=== PATIENT | male | born 1955 | race African-American/Black ===

== ENCOUNTER 2022-11-18 21:03 | Inpatient (IN) | payer OTHER ==
[2022-11-18] MEDS ORDERED: Dexamethasone 10 MG/ML VIAL ONE ×2 (21:08→21:38)
[2022-11-18] MEDS ORDERED: Magnesium 2 GM/50 ML BAG (IN WATER) ONE (21:08)
[2022-11-18] MEDS ORDERED: Nitroglycerin 50 MG/250 ML BOT 250 ML ONE (21:11)
[2022-11-18] MEDS ORDERED: Ketamine 50 MG/ML (10ML VIAL) ONE (21:14)
[2022-11-18] MEDS ORDERED: Furosemide 40 MG/4 ML VIAL ONE (21:17)
[2022-11-18 21:23] LABS: Actual Bicarbonate (HCO3a) 22.5 mEq/L (22-28); Analyzer IN Cardio ER; Base Excess (BEa) -6.6 mEq/L (-2.0 to +3.0); Calcium, Ionized (arterial) 1.21 mmol/L (1.12-1.30); Carboxyhemoglobin (COHb) 1.3 gm% (0.0-3.0); Hematocrit-ABG 39 % (42.0-52.0); Hemoglobin (Hb) 13.3 g/dL (14.0-18.0); O2 Tension (PaO2), arterial 391.2 mmHg (> 80.0); Potassium - ABG Lab 4.58 mmol/L (3.70-5.30)
[2022-11-18 21:25] LABS: #Eosinphils 0.1 thou/uL (0.0-0.7); #Monocytes 1.2 thou/uL (0.11-0.59); #Neutrophils 7.1 thou/uL (1.40-6.50); %Basophils 0.3 % (0.0-1.0); %Eosinophils 0.7 % (0.0-10.0); %Lymphocytes 18.2 % (21.0-51.0); %Monocytes 11.6 % (0.0-10.0); %Neutrophils 68.1 % (42.0-75.0); Hemoglobin 13.2 g/dL (14.0-18.0); Mean Corpuscular HGB CONC 30.2 g/dL (32.0-36.0); Mean Corpuscular Volume 105.8 fl (78.0-98.0); Mean Platelet Volume 10.1 fL (7.4-10.4); Platelet Count 256 10x3/uL (130-400); RBC Distribution Width 12.6 % (11.5-14.5); Red Blood Cell (RBC) Count 4.13 mill/uL (4.70-6.10); White Blood Cell (WBC) Count 10.4 10x3/uL (4.8-10.8)
[2022-11-18 21:27] LABS: CO2 Tension 61.8 mmHg (35.0-45.0)
[2022-11-18 21:28] LABS: Puncture Site LRA
[2022-11-18 22:06] LABS: Analyzer IN Cardio ER; Base Excess (BEa) -1.7 mEq/L (-2.0 to +3.0); CO2 Tension 50.8 mmHg (35.0-45.0); Calcium, Ionized (arterial) 1.16 mmol/L (1.12-1.30); Carboxyhemoglobin (COHb) 1.3 gm% (0.0-3.0); Hematocrit-ABG 37 % (42.0-52.0); Hemoglobin (Hb) 12.7 g/dL (14.0-18.0); O2 Tension (PaO2), arterial 93.6 mmHg (> 80.0); Potassium - ABG Lab 4.23 mmol/L (3.70-5.30)
[2022-11-18] MEDS ORDERED: Albuterol 2.5 MG/0.5 ML NEB ONE (22:09)
[2022-11-18] MEDS: Ipratropium/Albuterol 3 ML NEB NEB SCH (22:15)
[2022-11-18] MEDS ORDERED: Cefepime 2 GM VIAL ONE (22:15)
[2022-11-18] MEDS ORDERED: Vancomycin 1 GM/200 ML (FROZEN) BAG ONE (22:15)
[2022-11-18 22:30] LABS: Calcium 8.4 mg/dL (7.8-10.44); Chloride 108 mmol/L (98-107); Potassium 5.2 mmol/L (3.5-5.1); Sodium 138 mmol/L (136-145)
[2022-11-18 22:31] LABS: Glucose 140 mg/dL (80-115)
[2022-11-18 22:33] LABS: Anion Gap 14 mmol/L (10-20); Carbon Dioxide 21 mmol/L (23-31)
[2022-11-18 22:34] LABS: Calc. Creatinine Clearance 0 mL/min (70-130); Estimated GFR 33
[2022-11-18 22:35] LABS: BUN (Urea Nitrogen) 25 mg/dL (8.4-25.7)
[2022-11-18 22:36] LABS: Magnesium 2.2 mg/dL (1.6-2.6)
[2022-11-18] MEDS ORDERED: Acetaminophen 650 MG Suppository PR PRN (22:45)
[2022-11-18] MEDS ORDERED: Acetaminophen 325 MG TAB PO PRN (22:45)
[2022-11-18] MEDS ORDERED: Ondansetron ODT 4 MG TAB PO PRN (22:45)
[2022-11-18] MEDS ORDERED: Ondansetron PF 4 MG/2 ML Vial IVP PRN (22:45)
[2022-11-18 22:46] LABS: Puncture Site LRA
[2022-11-18] MEDS ORDERED: Ipratropium/Albuterol 3 ML NEB NEB PRN (22:50)
[2022-11-19 01:47] LABS: CKMB 4.8 ng/mL (0-6.6)
[2022-11-19 02:14] LABS: Lactic Acid 1.7 mmol/L (0.5-2.2)
[2022-11-19 02:17] LABS: Anion Gap 14 mmol/L (10-20); BUN (Urea Nitrogen) 26 mg/dL (8.4-25.7); Calc. Creatinine Clearance 0 mL/min (70-130); Calcium 8.6 mg/dL (7.8-10.44); Carbon Dioxide 22 mmol/L (23-31); Chloride 103 mmol/L (98-107); Estimated GFR 37; Glucose 137 mg/dL (80-115); Potassium 4.5 mmol/L (3.5-5.1); Sodium 134 mmol/L (136-145)
[2022-11-19] MEDS: Ipratropium/Albuterol 3 ML NEB NEB SCH ×6 (02:42→22:37)
[2022-11-19] MEDS ORDERED: Ipratropium/Albuterol 3 ML NEB NEB PRN (04:13)
[2022-11-19 05:18] LABS: Actual Bicarbonate (HCO3v) 20.3 mEq/L (22-28); Base Excess -1.7 mEq/L (-2.0 to +3.0); Calcium, Ionized (venous) 1.01 mmol/L (1.16-1.32); Chloride (VBG) 105 mmol/L (98-106); Hematocrit-VBG 38 % (42.0-52.0); Potassium (VBG) 5.05 mmol/L (3.70-5.30); Sodium 121.3 mmol/L (133-146); pH (venous) 7.493 (7.32-7.43)
[2022-11-19 05:26] VITALS: BMI 19.8
[2022-11-19 06:16] LABS: #Monocytes 0.1 thou/uL (0.11-0.59); #Neutrophils 7.9 thou/uL (1.40-6.50); %Basophils 0.1 % (0.0-1.0); %Monocytes 1.2 % (0.0-10.0); Hemoglobin 11.7 g/dL (14.0-18.0); Mean Corpuscular HGB CONC 31.1 g/dL (32.0-36.0); Mean Corpuscular Hemoglobin 32.3 pg (27.0-31.0); Mean Corpuscular Volume 103.9 fl (78.0-98.0); Mean Platelet Volume 10.4 fL (7.4-10.4); Platelet Count 235 10x3/uL (130-400); RBC Distribution Width 12.5 % (11.5-14.5); Red Blood Cell (RBC) Count 3.62 mill/uL (4.70-6.10); White Blood Cell (WBC) Count 8.6 10x3/uL (4.8-10.8)
[2022-11-19 06:28] LABS: Anion Gap 14 mmol/L (10-20); BUN (Urea Nitrogen) 27 mg/dL (8.4-25.7); Calc. Creatinine Clearance 29 mL/min (70-130); Calcium 8.8 mg/dL (7.8-10.44); Carbon Dioxide 24 mmol/L (23-31); Chloride 102 mmol/L (98-107); Estimated GFR 35; Glucose 117 mg/dL (80-115); Potassium 4.4 mmol/L (3.5-5.1); Sodium 136 mmol/L (136-145)
[2022-11-19] MEDS: predniSONE 20 MG TAB PO SCH (08:53)
[2022-11-19] MEDS: Famotidine/PF 20 mg/2ml Vial SLOW IVP SCH ×2 (08:56→22:04)
[2022-11-19] MEDS: Doxycycline 100 MG in Sodium Chloride 0.9% 100 ML IVPB SCH ×2 (08:56→22:03)
[2022-11-19] MEDS: Furosemide 40 MG/4 ML VIAL SLOW IVP SCH (08:56)
[2022-11-19] MEDS ORDERED: methylPREDNISolone Sod Succ 40 MG VIAL IVP SCH (09:00)
[2022-11-19] MEDS ORDERED: Iopamidol 370 76% 100 ML VIAL ONE (09:50)
[2022-11-20] MEDS: Ipratropium/Albuterol 3 ML NEB NEB SCH ×6 (02:21→22:20)
[2022-11-20 05:32] LABS: Magnesium 1.9 mg/dL (1.6-2.6)
[2022-11-20] MEDS: Doxycycline 100 MG in Sodium Chloride 0.9% 100 ML IVPB SCH (08:41)
[2022-11-20] MEDS: predniSONE 20 MG TAB PO SCH (08:41)
[2022-11-20] MEDS: Famotidine/PF 20 mg/2ml Vial SLOW IVP SCH (08:42)
[2022-11-20] MEDS: Furosemide 40 MG/4 ML VIAL SLOW IVP SCH (08:42)
[2022-11-20] MEDS: Doxycycline 100 MG CAP PO SCH ×2 (10:07→20:05)
[2022-11-20] MEDS: Famotidine 20 MG TAB PO SCH (10:08)
[2022-11-20] MEDS ORDERED: ALPRAZolam 0.25 MG TAB PO PRN (11:10)
[2022-11-20] MEDS ORDERED: Carvedilol 3.125 MG TAB PO SCH ×2 (17:00→19:15)
[2022-11-20] MEDS ORDERED: Rivaroxaban 10 MG TAB PO SCH (18:00)
[2022-11-21] MEDS: Ipratropium/Albuterol 3 ML NEB NEB SCH ×4 (02:19→14:30)
[2022-11-21] MEDS ORDERED: Furosemide 40 MG TAB PO SCH (07:30)
[2022-11-21] MEDS ORDERED: Carvedilol 3.125 MG TAB PO SCH (08:00)
[2022-11-21] MEDS ORDERED: Spironolactone 25 MG TAB PO SCH (08:00)
[2022-11-21] MEDS: predniSONE 20 MG TAB PO SCH (08:31)
[2022-11-21] MEDS: Doxycycline 100 MG CAP PO SCH (08:31)
[2022-11-21] MEDS: Famotidine 20 MG TAB PO SCH (08:32)
[2022-11-21 12:08] VITALS: BP 130/88; TEMP 98.2
[2022-11-21] MEDS ORDERED: Rivaroxaban 15 MG TAB PO SCH (18:00)
== END 2022-11-21 15:10 | disposition home or self-care (01) | DRG 291 ==
LOC: ERS 21:03 → ERHOLD 22:38 → IMCU/EMU 11-19 02:47 → OBSVTOIN 11-19 03:42 → 2SW 11-19 20:10
PROVIDERS: ADMIT Student in an Organized Health Care Education/Training Program; ATTEND Family Medicine
PROC: 4A133R1 Monitoring of Arterial Saturation, Peripheral, Percutaneous Approach (ICD-10-PCS; principal; 2022-11-18)
PROC: 5A09357 Assistance with Respiratory Ventilation, Less than 24 Consecutive Hours, Continuous Positive Airway Pressure (ICD-10-PCS; 2022-11-19)
DX: I50.43 Acute on chronic combined systolic (congestive) and diastolic (congestive) heart failure (principal); G93.41 Metabolic encephalopathy; J96.21 Acute and chronic respiratory failure with hypoxia; J96.22 Acute and chronic respiratory failure with hypercapnia; J44.1 Chronic obstructive pulmonary disease with (acute) exacerbation; E87.20 Acidosis, unspecified; I24.8 Other forms of acute ischemic heart disease; I47.20 Ventricular tachycardia, unspecified; Z51.5 Encounter for palliative care; N18.30 Chronic kidney disease, stage 3 unspecified; I48.0 Paroxysmal atrial fibrillation; R79.1 Abnormal coagulation profile; R91.8 Other nonspecific abnormal finding of lung field; I34.0 Nonrheumatic mitral (valve) insufficiency; Z99.81 Dependence on supplemental oxygen; Z79.899 Other long term (current) drug therapy; Z98.890 Other specified postprocedural states; Z95.818 Presence of other cardiac implants and grafts; Z87.891 Personal history of nicotine dependence; Z91.198 Patient's noncompliance with other medical treatment and regimen for other reason
CPT/HCPCS: 36415; 36556; 36600; 71045; 71275; 80048; 82553; 82805; 83605; 83735; 83880; 84484; 85025; 85379; 87040; 93005; 94640; 94660; 96365; 96367; 96368; 96375; 99292; G0378; J0692; J1100; J1650; J1940; J3370-JW; J3475; J3490; J7512; J7611; J7620; Q9967; S0028

== ENCOUNTER 2022-12-14 12:10 | Inpatient (IN) | payer OTHER ==
[2022-12-14] MEDS ORDERED: methylPREDNISolone Sod Succ/PF 125 MG/2 ML VIAL ONE (12:33)
[2022-12-14] MEDS ORDERED: Azithromycin 500 MG VIAL ONE (12:33)
[2022-12-14] MEDS ORDERED: Cefepime 2 GM VIAL ONE (12:33)
[2022-12-14 12:42] LABS: Actual Bicarbonate (HCO3v) 18.3 mEq/L (22-28); Analyzer IN Cardio ER; Calcium, Ionized (venous) 0.97 mmol/L (1.16-1.32); Chloride (VBG) 103 mmol/L (98-106); Hematocrit-VBG 44 % (42.0-52.0); Hemoglobin (Hb) 15.1 g/dL (12.6-17.4); Sodium 131.8 mmol/L (133-146); pH (venous) 7.492 (7.32-7.43)
[2022-12-14 13:04] LABS: #Eosinphils 0.1 thou/uL (0.0-0.7); #Monocytes 0.5 thou/uL (0.11-0.59); #Neutrophils 6.2 thou/uL (1.40-6.50); %Basophils 0.4 % (0.0-1.0); %Eosinophils 0.8 % (0.0-10.0); %Lymphocytes 16.5 % (21.0-51.0); %Monocytes 6.4 % (0.0-10.0); %Neutrophils 75.1 % (42.0-75.0); Hematocrit 45.3 % (42.0-52.0); Hemoglobin 14.3 g/dL (14.0-18.0); Mean Corpuscular HGB CONC 31.6 g/dL (32.0-36.0); Mean Corpuscular Hemoglobin 31.4 pg (27.0-31.0); Mean Corpuscular Volume 99.3 fl (78.0-98.0); Mean Platelet Volume 10.1 fL (7.4-10.4); Platelet Count 258 10x3/uL (130-400); Red Blood Cell (RBC) Count 4.56 mill/uL (4.70-6.10); White Blood Cell (WBC) Count 8.3 10x3/uL (4.8-10.8)
[2022-12-14 13:09] LABS: SARS-CoV-2 NAA Rapid Test Not Detected (NotDetected)
[2022-12-14 13:18] LABS: ALT (SGPT) 12 U/L (8-55); AST (SGOT) 22 U/L (5-34); Albumin 3.6 g/dL (3.4-4.8); Alkaline Phosphatase 78 U/L (40-110); Anion Gap 16 mmol/L (10-20); BUN (Urea Nitrogen) 34 mg/dL (8.4-25.7); Bilirubin, Total 0.8 mg/dL (0.2-1.2); Calc. Creatinine Clearance 0 mL/min (70-130); Calcium 9.2 mg/dL (7.8-10.44); Carbon Dioxide 21 mmol/L (23-31); Chloride 103 mmol/L (98-107); Estimated GFR 40; Globulin 3.4 g/dL (2.4-3.5); Glucose 104 mg/dL (80-115); Lipase 28 U/L (8-78); Potassium 4.9 mmol/L (3.5-5.1); Sodium 135 mmol/L (136-145)
[2022-12-14 13:20] LABS: Troponin I 0.066 ng/mL (< 0.028)
[2022-12-14 13:48] LABS: Bacteria/HPF None Seen HPF (None Seen); Bilirubin Negative (Negative); Blood, Urine Negative (Negative); CAUTI Indications for Culture Dysuria,urgency,freq; Clarity Clear (Clear); Glucose, Urine (Dipstick) Normal (Negative); Ketone, Urine Negative (Negative); Leukocyte Negative Leu/uL (Negative); Nitrite Negative (Negative); Protein, Urine (Dipstick) 100 mg/dL (Neg-Trace); RBC/HPF 0-3 HPF (0-3); Specific Gravity, Urine 1.022 (1.002-1.036); Squamous Epithelial 0-3 HPF (0-3); WBC/HPF 0-3 HPF (0-3); pH, Urine 5.5 (5.0-9.0)
[2022-12-14 13:49] LABS: Urine Culture Reflex No No
[2022-12-14 13:54] LABS: Amphetamine Not Detected (NotDetected); Barbiturates Screen Not Detected (NotDetected); Benzodiazepine Screen Not Detected (NotDetected); Cocaine Metabolite Screen Detected (NotDetected); Methadone Not Detected (NotDetected); Methamphetamine Not Detected (NotDetected); Opiate Screen Not Detected (NotDetected); Oxycodone Screen Not Detected (NotDetected); Phencyclidine (PCP) Not Detected (NotDetected); THC/Cannabinoid Screen Not Detected (NotDetected); Tricyclic Screen Not Detected (NotDetected)
[2022-12-14] MEDS ORDERED: Acetaminophen 325 MG TAB PO PRN (15:25)
[2022-12-14] MEDS ORDERED: Ondansetron PF 4 MG/2 ML Vial IVP PRN (15:25)
[2022-12-14 17:04] LABS: Lactic Acid 3.8 mmol/L (0.5-2.2)
[2022-12-14] MEDS: Ipratropium/Albuterol 3 ML NEB NEB SCH ×2 (18:25→23:06)
[2022-12-14] MEDS: Budesonide 0.5 MG/2 ML NEB NEB SCH (18:27)
[2022-12-14 19:49] LABS: Troponin I 0.044 ng/mL (< 0.028)
[2022-12-14] MEDS ORDERED: Amiodarone 450 MG in Dextrose 5% in Water 250 ML IVPB SCH (20:30)
[2022-12-14] MEDS ORDERED: Metoprolol Tartrate 5 MG/5 ML VIAL ONE (20:44)
[2022-12-14] MEDS ORDERED: Metoprolol Tartrate 5 MG/5 ML VIAL IVP SCH (20:45)
[2022-12-14] MEDS ORDERED: Electrolyte Replacement Protocol 1 EACH FS PRN (21:30)
[2022-12-14 21:46] LABS: Lactic Acid 3.8 mmol/L (0.5-2.2)
[2022-12-14 22:07] LABS: Troponin I 0.035 ng/mL (< 0.028)
[2022-12-15] MEDS ORDERED: dilTIAZem 25 MG/5 ML VIAL SLOW IVP SCH (02:00)
[2022-12-15 03:50] LABS: #Monocytes 0.3 thou/uL (0.11-0.59); #Neutrophils 11.2 thou/uL (1.40-6.50); %Basophils 0.1 % (0.0-1.0); %Lymphocytes 6.7 % (21.0-51.0); %Monocytes 2.6 % (0.0-10.0); Hematocrit 41.4 % (42.0-52.0); Hemoglobin 13.2 g/dL (14.0-18.0); Mean Corpuscular HGB CONC 31.9 g/dL (32.0-36.0); Mean Corpuscular Hemoglobin 31.6 pg (27.0-31.0); Mean Platelet Volume 9.9 fL (7.4-10.4); Platelet Count 233 10x3/uL (130-400); RBC Distribution Width 12.8 % (11.5-14.5); Red Blood Cell (RBC) Count 4.18 mill/uL (4.70-6.10); White Blood Cell (WBC) Count 12.5 10x3/uL (4.8-10.8)
[2022-12-15 04:14] LABS: Anion Gap 15 mmol/L (10-20); BUN (Urea Nitrogen) 52 mg/dL (8.4-25.7); Calc. Creatinine Clearance 28 mL/min (70-130); Calcium 9.2 mg/dL (7.8-10.44); Carbon Dioxide 18 mmol/L (23-31); Chloride 104 mmol/L (98-107); Estimated GFR 34; Glucose 148 mg/dL (80-115); Potassium 4.8 mmol/L (3.5-5.1); Sodium 132 mmol/L (136-145)
[2022-12-15] MEDS: Ipratropium/Albuterol 3 ML NEB NEB SCH ×4 (07:25→23:49)
[2022-12-15] MEDS: Budesonide 0.5 MG/2 ML NEB NEB SCH ×2 (07:25→18:12)
[2022-12-15] MEDS ORDERED: dilTIAZem 30 MG TAB PO SCH (08:30)
[2022-12-15] MEDS: Aspirin 81 mg Enteric Coated Tablet PO SCH (08:50)
[2022-12-15] MEDS: Famotidine/PF 20 mg/2ml Vial SLOW IVP SCH (08:50)
[2022-12-15] MEDS ORDERED: Communication Order-Pharmacy FS ONE (09:54)
[2022-12-15] MEDS ORDERED: Amiodarone 150 MG in Dextrose 5% in Water 100 ML IVPB SCH (10:00)
[2022-12-15] MEDS ORDERED: Digoxin 0.5 MG/2 ML AMP SLOW IVP SCH ×2 (10:00→16:00)
[2022-12-15 10:33] LABS: Hematocrit 44.6 % (42.0-52.0); Hemoglobin 13.9 g/dL (14.0-18.0); Platelet Count 248 10x3/uL (130-400)
[2022-12-15] MEDS: dilTIAZem 30 MG TAB PO SCH ×3 (12:42→20:48)
[2022-12-15] MEDS: Amiodarone 450 MG in Dextrose 5% in Water 250 ML IVPB SCH ×2 (12:51→21:45)
[2022-12-15] MEDS: Cefepime 1 GM in Sodium Chloride 0.9% 100 ML IVPB SCH (13:19)
[2022-12-15] MEDS ORDERED: Azithromycin 500 MG in Sodium Chloride 0.9% 250 ML 250 ML IVPB SCH (14:00)
[2022-12-16 04:28] LABS: #Monocytes 1.3 thou/uL (0.11-0.59); #Neutrophils 12.8 thou/uL (1.40-6.50); %Basophils 0.3 % (0.0-1.0); %Eosinophils 0.2 % (0.0-10.0); %Lymphocytes 10.1 % (21.0-51.0); %Neutrophils 80.7 % (42.0-75.0); Hematocrit 44.6 % (42.0-52.0); Hemoglobin 13.7 g/dL (14.0-18.0); Mean Corpuscular HGB CONC 30.7 g/dL (32.0-36.0); Mean Corpuscular Hemoglobin 31.9 pg (27.0-31.0); Mean Platelet Volume 11.8 fL (7.4-10.4); Red Blood Cell (RBC) Count 4.29 mill/uL (4.70-6.10); White Blood Cell (WBC) Count 15.8 10x3/uL (4.8-10.8)
[2022-12-16 04:37] LABS: Platelet Count 133 10x3/uL (130-400)
[2022-12-16 04:55] LABS: Anion Gap 15 mmol/L (10-20); BUN (Urea Nitrogen) 50 mg/dL (8.4-25.7); Calc. Creatinine Clearance 31 mL/min (70-130); Calcium 9.2 mg/dL (7.8-10.44); Carbon Dioxide 18 mmol/L (23-31); Chloride 105 mmol/L (98-107); Estimated GFR 37; Glucose 95 mg/dL (80-115); Potassium 4.7 mmol/L (3.5-5.1); Sodium 133 mmol/L (136-145)
[2022-12-16] MEDS: Famotidine/PF 20 mg/2ml Vial SLOW IVP SCH (08:04)
[2022-12-16] MEDS: dilTIAZem 30 MG TAB PO SCH ×2 (08:04→12:14)
[2022-12-16] MEDS: Aspirin 81 mg Enteric Coated Tablet PO SCH (08:04)
[2022-12-16] MEDS: Ipratropium/Albuterol 3 ML NEB NEB SCH ×3 (08:25→22:17)
[2022-12-16] MEDS: Budesonide 0.5 MG/2 ML NEB NEB SCH ×2 (08:28→18:15)
[2022-12-16] MEDS: Cefepime 1 GM in Sodium Chloride 0.9% 100 ML IVPB SCH (12:15)
[2022-12-16] MEDS ORDERED: Ipratropium/Albuterol 3 ML NEB NEB SCH (13:00)
[2022-12-16] MEDS ORDERED: methylPREDNISolone Sod Succ 40 MG VIAL IVP SCH ×2 (15:00→18:00)
[2022-12-16] MEDS ORDERED: HYDROcodone/Acetaminophen 5/325 mg Tablet PO PRN (16:23)
[2022-12-16] MEDS: methylPREDNISolone Sod Succ 40 MG VIAL IVP SCH ×2 (18:01→22:59)
[2022-12-16] MEDS: Senokot S 8.6-50 MG TAB PO SCH (19:58)
[2022-12-16] MEDS: Amiodarone 200 MG TAB PO SCH (19:58)
[2022-12-17] MEDS: Ipratropium/Albuterol 3 ML NEB NEB SCH ×6 (01:54→22:40)
[2022-12-17 04:03] LABS: #Monocytes 0.1 thou/uL (0.11-0.59); %Basophils 0.1 % (0.0-1.0); %Lymphocytes 4.9 % (21.0-51.0); %Neutrophils 92.9 % (42.0-75.0); Hematocrit 40.4 % (42.0-52.0); Mean Corpuscular HGB CONC 32.2 g/dL (32.0-36.0); Mean Corpuscular Hemoglobin 31.9 pg (27.0-31.0); Mean Platelet Volume 9.6 fL (7.4-10.4); Platelet Count 252 10x3/uL (130-400); RBC Distribution Width 12.7 % (11.5-14.5); Red Blood Cell (RBC) Count 4.08 mill/uL (4.70-6.10); White Blood Cell (WBC) Count 10.8 10x3/uL (4.8-10.8)
[2022-12-17 05:02] LABS: Anion Gap 13 mmol/L (10-20); BUN (Urea Nitrogen) 42 mg/dL (8.4-25.7); Calc. Creatinine Clearance 36 mL/min (70-130); Calcium 9.7 mg/dL (7.8-10.44); Carbon Dioxide 21 mmol/L (23-31); Chloride 104 mmol/L (98-107); Estimated GFR 44; Glucose 148 mg/dL (80-115); Potassium 4.7 mmol/L (3.5-5.1); Sodium 133 mmol/L (136-145)
[2022-12-17] MEDS: methylPREDNISolone Sod Succ 40 MG VIAL IVP SCH ×3 (05:05→17:39)
[2022-12-17] MEDS: Budesonide 0.5 MG/2 ML NEB NEB SCH ×2 (07:35→18:42)
[2022-12-17] MEDS: Famotidine/PF 20 mg/2ml Vial SLOW IVP SCH (08:57)
[2022-12-17] MEDS: Senokot S 8.6-50 MG TAB PO SCH ×2 (08:57→21:22)
[2022-12-17] MEDS: Amiodarone 200 MG TAB PO SCH ×2 (08:57→21:22)
[2022-12-17] MEDS: Aspirin 81 mg Enteric Coated Tablet PO SCH (08:57)
[2022-12-17] MEDS: Cefepime 1 GM in Sodium Chloride 0.9% 100 ML IVPB SCH (13:10)
[2022-12-17] MEDS ORDERED: hydrALAZINE 20 MG/ML VIAL ONE (22:47)
[2022-12-17] MEDS ORDERED: Furosemide 40 MG/4 ML VIAL SLOW IVP SCH (23:00)
[2022-12-17] MEDS ORDERED: Furosemide 40 MG/4 ML VIAL ONE (23:15)
[2022-12-17] MEDS ORDERED: Nitroglycerin 2% Ointment 1 INCH/1 GM Packet ONE (23:17)
[2022-12-17] MEDS ORDERED: Nitroglycerin 2% Ointment 1 INCH/1 GM Packet TOP SCH (23:20)
[2022-12-17] MEDS ORDERED: Nitroglycerin 50 MG/250 ML BOT 250 ML ONE (23:27)
[2022-12-17] MEDS ORDERED: Nitroglycerin 50 MG/250 ML BOT 250 ML IVPB SCH (23:30)
[2022-12-18] MEDS: methylPREDNISolone Sod Succ 40 MG VIAL IVP SCH ×4 (00:56→18:25)
[2022-12-18] MEDS: Ipratropium/Albuterol 3 ML NEB NEB SCH ×6 (02:48→22:02)
[2022-12-18] MEDS: Budesonide 0.5 MG/2 ML NEB NEB SCH ×2 (06:25→18:15)
[2022-12-18 06:27] LABS: #Monocytes 0.9 thou/uL (0.11-0.59); #Neutrophils 17.8 thou/uL (1.40-6.50); %Basophils 0.2 % (0.0-1.0); %Lymphocytes 4.3 % (21.0-51.0); %Monocytes 4.3 % (0.0-10.0); %Neutrophils 89.7 % (42.0-75.0); Hematocrit 42.3 % (42.0-52.0); Mean Corpuscular HGB CONC 30.7 g/dL (32.0-36.0); Mean Corpuscular Hemoglobin 31.2 pg (27.0-31.0); Mean Corpuscular Volume 101.4 fl (78.0-98.0); Mean Platelet Volume 9.6 fL (7.4-10.4); Platelet Count 285 10x3/uL (130-400); Red Blood Cell (RBC) Count 4.17 mill/uL (4.70-6.10); White Blood Cell (WBC) Count 19.8 10x3/uL (4.8-10.8)
[2022-12-18 06:49] LABS: Anion Gap 14 mmol/L (10-20); BUN (Urea Nitrogen) 41 mg/dL (8.4-25.7); Calc. Creatinine Clearance 34 mL/min (70-130); Calcium 9.9 mg/dL (7.8-10.44); Carbon Dioxide 26 mmol/L (23-31); Chloride 102 mmol/L (98-107); Estimated GFR 41; Glucose 122 mg/dL (80-115); Potassium 4.7 mmol/L (3.5-5.1); Sodium 137 mmol/L (136-145)
[2022-12-18] MEDS: Aspirin 81 mg Enteric Coated Tablet PO SCH (09:45)
[2022-12-18] MEDS: Amiodarone 200 MG TAB PO SCH ×2 (09:48→21:38)
[2022-12-18] MEDS: Famotidine/PF 20 mg/2ml Vial SLOW IVP SCH (09:49)
[2022-12-18] MEDS: Senokot S 8.6-50 MG TAB PO SCH ×2 (09:49→21:38)
[2022-12-18] MEDS: Cefepime 1 GM in Sodium Chloride 0.9% 100 ML IVPB SCH (14:15)
[2022-12-19] MEDS: Cefepime 1 GM in Sodium Chloride 0.9% 100 ML IVPB SCH ×2 (00:26→14:34)
[2022-12-19] MEDS: methylPREDNISolone Sod Succ 40 MG VIAL IVP SCH ×4 (00:26→17:45)
[2022-12-19] MEDS: Ipratropium/Albuterol 3 ML NEB NEB SCH ×6 (02:03→22:36)
[2022-12-19 04:30] LABS: #Monocytes 0.3 thou/uL (0.11-0.59); #Neutrophils 15.9 thou/uL (1.40-6.50); %Basophils 0.1 % (0.0-1.0); %Lymphocytes 2.8 % (21.0-51.0); %Neutrophils 93.9 % (42.0-75.0); Hematocrit 40.9 % (42.0-52.0); Hemoglobin 12.6 g/dL (14.0-18.0); Mean Corpuscular HGB CONC 30.8 g/dL (32.0-36.0); Mean Corpuscular Hemoglobin 31.5 pg (27.0-31.0); Mean Corpuscular Volume 102.3 fl (78.0-98.0); Mean Platelet Volume 9.7 fL (7.4-10.4); Platelet Count 301 10x3/uL (130-400); RBC Distribution Width 13.1 % (11.5-14.5)
[2022-12-19 04:57] LABS: Anion Gap 20 mmol/L (10-20); BUN (Urea Nitrogen) 50 mg/dL (8.4-25.7); Calc. Creatinine Clearance 36 mL/min (70-130); Calcium 9.6 mg/dL (7.8-10.44); Carbon Dioxide 22 mmol/L (23-31); Chloride 100 mmol/L (98-107); Estimated GFR 44; Glucose 129 mg/dL (80-115); Potassium 4.8 mmol/L (3.5-5.1); Sodium 137 mmol/L (136-145)
[2022-12-19] MEDS: Budesonide 0.5 MG/2 ML NEB NEB SCH ×2 (07:02→19:11)
[2022-12-19] MEDS: Senokot S 8.6-50 MG TAB PO SCH ×2 (09:50→20:44)
[2022-12-19] MEDS: Famotidine/PF 20 mg/2ml Vial SLOW IVP SCH (09:50)
[2022-12-19] MEDS: Amiodarone 200 MG TAB PO SCH ×2 (09:50→20:46)
[2022-12-19] MEDS ORDERED: Furosemide 40 MG/4 ML VIAL SLOW IVP SCH (17:15)
[2022-12-19] MEDS ORDERED: guaiFENesin ER 600 MG TAB PO PRN (22:01)
[2022-12-20] MEDS: Cefepime 1 GM in Sodium Chloride 0.9% 100 ML IVPB SCH ×2 (00:11→12:48)
[2022-12-20] MEDS: methylPREDNISolone Sod Succ 40 MG VIAL IVP SCH ×4 (00:11→18:11)
[2022-12-20] MEDS: Ipratropium/Albuterol 3 ML NEB NEB SCH ×6 (02:10→23:32)
[2022-12-20] MEDS: Budesonide 0.5 MG/2 ML NEB NEB SCH ×2 (07:25→18:27)
[2022-12-20] MEDS: Amiodarone 200 MG TAB PO SCH ×2 (08:38→20:02)
[2022-12-20] MEDS: Famotidine/PF 20 mg/2ml Vial SLOW IVP SCH (08:38)
[2022-12-20] MEDS: Senokot S 8.6-50 MG TAB PO SCH ×3 (08:39→20:06)
[2022-12-20 09:29] LABS: #Monocytes 0.2 thou/uL (0.11-0.59); #Neutrophils 15.3 thou/uL (1.40-6.50); %Basophils 0.1 % (0.0-1.0); %Lymphocytes 2.7 % (21.0-51.0); %Monocytes 1.4 % (0.0-10.0); %Neutrophils 94.7 % (42.0-75.0); Hematocrit 46.1 % (42.0-52.0); Hemoglobin 13.7 g/dL (14.0-18.0); Mean Corpuscular HGB CONC 29.7 g/dL (32.0-36.0); Mean Corpuscular Hemoglobin 31.9 pg (27.0-31.0); Mean Corpuscular Volume 107.2 fl (78.0-98.0); Platelet Count 291 10x3/uL (130-400); RBC Distribution Width 13.2 % (11.5-14.5); White Blood Cell (WBC) Count 16.2 10x3/uL (4.8-10.8)
[2022-12-20 09:42] LABS: Anion Gap 16 mmol/L (10-20); BUN (Urea Nitrogen) 65 mg/dL (8.4-25.7); Calc. Creatinine Clearance 33 mL/min (70-130); Calcium 9.8 mg/dL (7.8-10.44); Carbon Dioxide 21 mmol/L (23-31); Chloride 101 mmol/L (98-107); Estimated GFR 38; Glucose 163 mg/dL (80-115); Potassium 4.4 mmol/L (3.5-5.1); Sodium 134 mmol/L (136-145)
[2022-12-20] MEDS ORDERED: Lidocaine 1% (PF) 30 ML VIAL ONE (10:27)
[2022-12-20 12:45] LABS: BF Color Red; Body Fluid Source Pleural Fluid; Clarity Cloudy/Turbid (Clear); RBC Count-Automated (BF) 136321 /cu.mm; Tube # EDTA; WBC/Nucleated-Auto (BF) 512 /cu.mm
[2022-12-20 14:04] LABS: BF Segmented Neutrophils 51 %; Cell Count Non Hematic 18 %; Lymphocytes 31 %
[2022-12-20 14:47] LABS: Pleural Fluid, Protein 2.6 g/dL
[2022-12-20] MEDS: Lorazepam 2 MG/ML VIAL SLOW IVP PRN (19:58)
[2022-12-21] MEDS: methylPREDNISolone Sod Succ 40 MG VIAL IVP SCH ×4 (01:29→21:08)
[2022-12-21] MEDS: Cefepime 1 GM in Sodium Chloride 0.9% 100 ML IVPB SCH ×2 (01:29→11:36)
[2022-12-21] MEDS: Ipratropium/Albuterol 3 ML NEB NEB SCH ×6 (02:12→22:23)
[2022-12-21 04:50] LABS: #Monocytes 0.5 thou/uL (0.11-0.59); #Neutrophils 14.9 thou/uL (1.40-6.50); %Basophils 0.1 % (0.0-1.0); %Lymphocytes 2.4 % (21.0-51.0); %Neutrophils 93.1 % (42.0-75.0); Hematocrit 39.7 % (42.0-52.0); Hemoglobin 12.5 g/dL (14.0-18.0); Mean Corpuscular HGB CONC 31.5 g/dL (32.0-36.0); Mean Corpuscular Hemoglobin 31.9 pg (27.0-31.0); Mean Platelet Volume 9.9 fL (7.4-10.4); Platelet Count 306 10x3/uL (130-400); RBC Distribution Width 13.1 % (11.5-14.5); Red Blood Cell (RBC) Count 3.92 mill/uL (4.70-6.10)
[2022-12-21 04:59] LABS: Mean Corpuscular Volume 101.3 fl (78.0-98.0)
[2022-12-21 05:19] LABS: Anion Gap 13 mmol/L (10-20); BUN (Urea Nitrogen) 66 mg/dL (8.4-25.7); Calc. Creatinine Clearance 36 mL/min (70-130); Calcium 9.2 mg/dL (7.8-10.44); Carbon Dioxide 23 mmol/L (23-31); Chloride 102 mmol/L (98-107); Estimated GFR 43; Glucose 145 mg/dL (80-115); Potassium 4.8 mmol/L (3.5-5.1); Sodium 133 mmol/L (136-145)
[2022-12-21] MEDS: Budesonide 0.5 MG/2 ML NEB NEB SCH ×2 (06:14→18:31)
[2022-12-21] MEDS: Famotidine/PF 20 mg/2ml Vial SLOW IVP SCH (11:35)
[2022-12-21] MEDS: Amiodarone 200 MG TAB PO SCH ×2 (11:35→21:04)
[2022-12-21] MEDS: Senokot S 8.6-50 MG TAB PO SCH ×2 (11:35→21:04)
[2022-12-21] MEDS: Lorazepam 2 MG/ML VIAL SLOW IVP PRN (21:04)
[2022-12-22] MEDS: Cefepime 1 GM in Sodium Chloride 0.9% 100 ML IVPB SCH ×2 (01:46→11:52)
[2022-12-22] MEDS: Ipratropium/Albuterol 3 ML NEB NEB SCH ×6 (02:48→22:40)
[2022-12-22 05:20] LABS: #Monocytes 0.6 thou/uL (0.11-0.59); #Neutrophils 19.6 thou/uL (1.40-6.50); %Basophils 0.1 % (0.0-1.0); %Eosinophils 0.2 % (0.0-10.0); %Neutrophils 92.8 % (42.0-75.0); Hematocrit 40.7 % (42.0-52.0); Hemoglobin 12.7 g/dL (14.0-18.0); Mean Corpuscular HGB CONC 31.2 g/dL (32.0-36.0); Mean Corpuscular Hemoglobin 31.8 pg (27.0-31.0); Mean Platelet Volume 10.6 fL (7.4-10.4); Platelet Count 222 10x3/uL (130-400); Red Blood Cell (RBC) Count 3.99 mill/uL (4.70-6.10); White Blood Cell (WBC) Count 21.2 10x3/uL (4.8-10.8)
[2022-12-22 05:49] LABS: Calcium 9.4 mg/dL (7.8-10.44); Glucose 119 mg/dL (80-115)
[2022-12-22 05:51] LABS: Anion Gap 17 mmol/L (10-20); Carbon Dioxide 16 mmol/L (23-31)
[2022-12-22] MEDS: methylPREDNISolone Sod Succ 40 MG VIAL IVP SCH ×2 (05:52→13:46)
[2022-12-22 05:53] LABS: BUN (Urea Nitrogen) 67 mg/dL (8.4-25.7); Calc. Creatinine Clearance 35 mL/min (70-130); Estimated GFR 41
[2022-12-22 05:57] LABS: Chloride 108 mmol/L (98-107); Potassium 5.6 mmol/L (3.5-5.1); Sodium 135 mmol/L (136-145)
[2022-12-22] MEDS: Budesonide 0.5 MG/2 ML NEB NEB SCH ×2 (07:26→18:57)
[2022-12-22] MEDS ORDERED: Electrolyte Replacement Protocol FS PRN (07:30)
[2022-12-22] MEDS: Lorazepam 2 MG/ML VIAL SLOW IVP PRN ×2 (08:30→19:16)
[2022-12-22] MEDS ORDERED: Dextrose 50% Abboject 50 ML SYRINGE SLOW IVP ONE (09:40)
[2022-12-22] MEDS ORDERED: Insulin Regular 300 UNITS/3 ML VIAL IVP SCH (09:45)
[2022-12-22] MEDS ORDERED: Furosemide 20 MG/2 ML VIAL SLOW IVP SCH (09:45)
[2022-12-22 10:28] LABS: Potassium 5.2 mmol/L (3.5-5.1)
[2022-12-22] MEDS: Senokot S 8.6-50 MG TAB PO SCH (11:52)
[2022-12-22] MEDS: Amiodarone 200 MG TAB PO SCH (11:52)
[2022-12-22] MEDS: Famotidine/PF 20 mg/2ml Vial SLOW IVP SCH (11:52)
[2022-12-22] MEDS: Morphine 2 MG/ML VIAL SLOW IVP PRN (13:46)
[2022-12-22] MEDS: hydrALAZINE 20 MG/ML VIAL SLOW IVP PRN (15:26)
[2022-12-23] MEDS: Senokot S 8.6-50 MG TAB PO SCH ×3 (00:38→20:27)
[2022-12-23] MEDS: Cefepime 1 GM in Sodium Chloride 0.9% 100 ML IVPB SCH ×2 (01:06→12:04)
[2022-12-23] MEDS: methylPREDNISolone Sod Succ 40 MG VIAL IVP SCH ×4 (01:06→20:29)
[2022-12-23] MEDS: hydrALAZINE 20 MG/ML VIAL SLOW IVP PRN ×3 (01:15→18:57)
[2022-12-23] MEDS: Amiodarone 200 MG TAB PO SCH ×3 (01:22→20:28)
[2022-12-23] MEDS: Morphine 2 MG/ML VIAL SLOW IVP PRN ×2 (02:37→18:57)
[2022-12-23] MEDS: Ipratropium/Albuterol 3 ML NEB NEB SCH ×6 (03:36→22:34)
[2022-12-23 04:15] LABS: #Basophils 0.1 thou/uL (0.0-0.2); #Monocytes 0.9 thou/uL (0.11-0.59); #Neutrophils 22.1 thou/uL (1.40-6.50); %Basophils 0.3 % (0.0-1.0); %Lymphocytes 2.1 % (21.0-51.0); %Monocytes 3.8 % (0.0-10.0); %Neutrophils 91.7 % (42.0-75.0); Hematocrit 43.9 % (42.0-52.0); Hemoglobin 13.8 g/dL (14.0-18.0); Mean Corpuscular HGB CONC 31.4 g/dL (32.0-36.0); Mean Corpuscular Hemoglobin 31.3 pg (27.0-31.0); Mean Corpuscular Volume 99.5 fl (78.0-98.0); Mean Platelet Volume 9.7 fL (7.4-10.4); Platelet Count 308 10x3/uL (130-400); RBC Distribution Width 13.2 % (11.5-14.5); Red Blood Cell (RBC) Count 4.41 mill/uL (4.70-6.10); White Blood Cell (WBC) Count 24.1 10x3/uL (4.8-10.8)
[2022-12-23 04:36] LABS: Anion Gap 15 mmol/L (10-20); BUN (Urea Nitrogen) 70 mg/dL (8.4-25.7); Calc. Creatinine Clearance 39 mL/min (70-130); Calcium 9.9 mg/dL (7.8-10.44); Carbon Dioxide 22 mmol/L (23-31); Chloride 103 mmol/L (98-107); Estimated GFR 47; Glucose 120 mg/dL (80-115); Potassium 5.3 mmol/L (3.5-5.1); Sodium 135 mmol/L (136-145)
[2022-12-23] MEDS: Budesonide 0.5 MG/2 ML NEB NEB SCH ×2 (06:52→18:36)
[2022-12-23] MEDS ORDERED: Insulin Regular 300 UNITS/3 ML VIAL IVP SCH (11:00)
[2022-12-23] MEDS ORDERED: Dextrose 50% Abboject 50 ML SYRINGE SLOW IVP SCH (11:00)
[2022-12-23] MEDS: Famotidine/PF 20 mg/2ml Vial SLOW IVP SCH (12:03)
[2022-12-24] MEDS: Cefepime 1 GM in Sodium Chloride 0.9% 100 ML IVPB SCH ×2 (02:23→14:05)
[2022-12-24] MEDS: hydrALAZINE 20 MG/ML VIAL SLOW IVP PRN ×3 (02:24→17:56)
[2022-12-24] MEDS: Ipratropium/Albuterol 3 ML NEB NEB SCH ×6 (03:30→21:28)
[2022-12-24 04:03] LABS: #Monocytes 0.9 thou/uL (0.11-0.59); #Neutrophils 21.7 thou/uL (1.40-6.50); %Basophils 0.2 % (0.0-1.0); %Lymphocytes 1.7 % (21.0-51.0); %Monocytes 3.8 % (0.0-10.0); %Neutrophils 92.8 % (42.0-75.0); Hematocrit 43.9 % (42.0-52.0); Hemoglobin 13.7 g/dL (14.0-18.0); Mean Corpuscular HGB CONC 31.2 g/dL (32.0-36.0); Mean Corpuscular Hemoglobin 31.6 pg (27.0-31.0); Mean Corpuscular Volume 101.4 fl (78.0-98.0); Mean Platelet Volume 9.8 fL (7.4-10.4); Platelet Count 299 10x3/uL (130-400); RBC Distribution Width 13.3 % (11.5-14.5); Red Blood Cell (RBC) Count 4.33 mill/uL (4.70-6.10); White Blood Cell (WBC) Count 23.4 10x3/uL (4.8-10.8)
[2022-12-24 04:30] LABS: Anion Gap 15 mmol/L (10-20); BUN (Urea Nitrogen) 72 mg/dL (8.4-25.7); Calc. Creatinine Clearance 35 mL/min (70-130); Calcium 9.6 mg/dL (7.8-10.44); Carbon Dioxide 22 mmol/L (23-31); Chloride 104 mmol/L (98-107); Estimated GFR 43; Glucose 141 mg/dL (80-115); Potassium 5.5 mmol/L (3.5-5.1); Sodium 135 mmol/L (136-145)
[2022-12-24] MEDS: methylPREDNISolone Sod Succ 40 MG VIAL IVP SCH ×3 (06:24→22:34)
[2022-12-24] MEDS: Budesonide 0.5 MG/2 ML NEB NEB SCH ×2 (06:57→18:31)
[2022-12-24] MEDS ORDERED: Furosemide 20 MG/2 ML VIAL SLOW IVP SCH (10:45)
[2022-12-24] MEDS ORDERED: Dextrose 50% Abboject 50 ML SYRINGE SLOW IVP SCH (10:45)
[2022-12-24] MEDS ORDERED: Insulin Regular 300 UNITS/3 ML VIAL IVP SCH (10:45)
[2022-12-24] MEDS: Amiodarone 200 MG TAB PO SCH ×2 (11:06→20:26)
[2022-12-24] MEDS: Famotidine/PF 20 mg/2ml Vial SLOW IVP SCH (11:06)
[2022-12-24] MEDS: Senokot S 8.6-50 MG TAB PO SCH ×2 (11:06→20:26)
[2022-12-24] MEDS: Morphine 2 MG/ML VIAL SLOW IVP PRN ×3 (11:07→20:26)
[2022-12-24] MEDS ORDERED: Lorazepam 2 MG/ML VIAL SLOW IVP PRN (15:49)
[2022-12-24 16:21] VITALS: BMI 20.2
[2022-12-25] MEDS: Cefepime 1 GM in Sodium Chloride 0.9% 100 ML IVPB SCH ×2 (01:05→13:58)
[2022-12-25] MEDS: Ipratropium/Albuterol 3 ML NEB NEB SCH ×6 (01:28→22:06)
[2022-12-25] MEDS: hydrALAZINE 20 MG/ML VIAL SLOW IVP PRN ×2 (03:00→09:23)
[2022-12-25 04:09] LABS: #Neutrophils 23.5 thou/uL (1.40-6.50); %Basophils 0.1 % (0.0-1.0); %Lymphocytes 1.3 % (21.0-51.0); %Monocytes 3.9 % (0.0-10.0); %Neutrophils 92.9 % (42.0-75.0); Hematocrit 43.6 % (42.0-52.0); Hemoglobin 13.6 g/dL (14.0-18.0); Mean Corpuscular HGB CONC 31.2 g/dL (32.0-36.0); Mean Corpuscular Hemoglobin 31.8 pg (27.0-31.0); Mean Corpuscular Volume 101.9 fl (78.0-98.0); Mean Platelet Volume 9.7 fL (7.4-10.4); Platelet Count 289 10x3/uL (130-400); RBC Distribution Width 13.6 % (11.5-14.5); Red Blood Cell (RBC) Count 4.28 mill/uL (4.70-6.10); White Blood Cell (WBC) Count 25.3 10x3/uL (4.8-10.8)
[2022-12-25 04:16] LABS: Manual Diff?? YES
[2022-12-25 04:35] LABS: Anion Gap 14 mmol/L (10-20); BUN (Urea Nitrogen) 81 mg/dL (8.4-25.7); Calc. Creatinine Clearance 31 mL/min (70-130); Carbon Dioxide 27 mmol/L (23-31); Chloride 102 mmol/L (98-107); Estimated GFR 35; Glucose 120 mg/dL (80-115); Potassium 5.9 mmol/L (3.5-5.1); Sodium 137 mmol/L (136-145)
[2022-12-25 04:43] LABS: Burr Cells SLIGHT = 2-5 cells HPF (0-1); CellaVision Operator ID lab.sh2; Lymphocytes 3 % (21-51); Macrocytosis SLIGHT = 6-15 cells HPF (0-5); Monocytes 4 % (0-10); Neutrophil 93 % (42-75); Platelet Adequacy Comment Platelets Normal; Total Cell Count 99
[2022-12-25] MEDS: methylPREDNISolone Sod Succ 40 MG VIAL IVP SCH ×3 (05:15→21:49)
[2022-12-25] MEDS: Morphine 2 MG/ML VIAL SLOW IVP PRN ×3 (06:19→21:49)
[2022-12-25] MEDS: Budesonide 0.5 MG/2 ML NEB NEB SCH ×2 (07:20→18:11)
[2022-12-25] MEDS: Famotidine/PF 20 mg/2ml Vial SLOW IVP SCH (09:23)
[2022-12-25] MEDS: Amiodarone 200 MG TAB PO SCH ×2 (09:23→21:49)
[2022-12-25] MEDS: Senokot S 8.6-50 MG TAB PO SCH ×2 (09:24→21:50)
[2022-12-25] MEDS ORDERED: Dextrose 50% Abboject 50 ML SYRINGE SLOW IVP SCH (13:47)
[2022-12-25] MEDS ORDERED: Insulin Regular 300 UNITS/3 ML VIAL IVP SCH (14:00)
[2022-12-25] MEDS ORDERED: Scopolamine 1.5 mg/72 hour Patch TD SCH (16:15)
[2022-12-25] MEDS: Lorazepam 2 MG/ML VIAL SLOW IVP PRN ×2 (17:29→23:34)
[2022-12-26] MEDS: Cefepime 1 GM in Sodium Chloride 0.9% 100 ML IVPB SCH (01:52)
[2022-12-26] MEDS: Ipratropium/Albuterol 3 ML NEB NEB SCH ×2 (02:08→07:43)
[2022-12-26] MEDS: Morphine 2 MG/ML VIAL SLOW IVP PRN (02:52)
[2022-12-26 06:48] VITALS: BP 141/88
[2022-12-26] MEDS: methylPREDNISolone Sod Succ 40 MG VIAL IVP SCH (06:49)
[2022-12-26 07:28] LABS: #Monocytes 0.8 thou/uL (0.11-0.59); #Neutrophils 23.3 thou/uL (1.40-6.50); %Basophils 0.2 % (0.0-1.0); %Lymphocytes 1.4 % (21.0-51.0); %Monocytes 3.2 % (0.0-10.0); %Neutrophils 93.8 % (42.0-75.0); Hematocrit 45.7 % (42.0-52.0); Hemoglobin 14.1 g/dL (14.0-18.0); Mean Corpuscular HGB CONC 30.9 g/dL (32.0-36.0); Mean Corpuscular Hemoglobin 31.7 pg (27.0-31.0); Mean Corpuscular Volume 102.7 fl (78.0-98.0); Mean Platelet Volume 10.5 fL (7.4-10.4); Platelet Count 221 10x3/uL (130-400); RBC Distribution Width 13.6 % (11.5-14.5); Red Blood Cell (RBC) Count 4.45 mill/uL (4.70-6.10); White Blood Cell (WBC) Count 24.8 10x3/uL (4.8-10.8)
[2022-12-26 07:42] LABS: Anion Gap 15 mmol/L (10-20); BUN (Urea Nitrogen) 79 mg/dL (8.4-25.7); Calc. Creatinine Clearance 32 mL/min (70-130); Calcium 9.7 mg/dL (7.8-10.44); Carbon Dioxide 23 mmol/L (23-31); Chloride 103 mmol/L (98-107); Estimated GFR 36; Glucose 108 mg/dL (80-115); Potassium 5.9 mmol/L (3.5-5.1); Sodium 135 mmol/L (136-145)
[2022-12-26] MEDS: Budesonide 0.5 MG/2 ML NEB NEB SCH (07:44)
[2022-12-26 08:34] VITALS: TEMP 97.5
[2022-12-26] MEDS: Lorazepam 2 MG/ML VIAL SLOW IVP PRN (09:01)
[2022-12-26] MEDS: Senokot S 8.6-50 MG TAB PO SCH (09:01)
[2022-12-26] MEDS: Famotidine/PF 20 mg/2ml Vial SLOW IVP SCH (09:01)
[2022-12-26] MEDS: Amiodarone 200 MG TAB PO SCH (09:01)
== END 2022-12-26 10:25 | disposition hospice, inpatient (51) | DRG 180 ==
LOC: ERS 12:10 → CCU 15:45 → 2NO 12-15 17:49 → IMCU/EMU 12-16 21:31
PROVIDERS: ADMIT Family Medicine; ATTEND Internal Medicine
PROC: 4A043R1 Measurement of Venous Saturation, Peripheral, Percutaneous Approach (ICD-10-PCS; 2022-12-14)
PROC: 5A09557 Assistance with Respiratory Ventilation, Greater than 96 Consecutive Hours, Continuous Positive Airway Pressure (ICD-10-PCS; 2022-12-19)
PROC: 0W993ZX Drainage of Right Pleural Cavity, Percutaneous Approach, Diagnostic (ICD-10-PCS; principal; 2022-12-20)
PROC: 3E033XZ Introduction of Vasopressor into Peripheral Vein, Percutaneous Approach (ICD-10-PCS; 2022-12-20)
PROC: 5A0935A Assistance with Respiratory Ventilation, Less than 24 Consecutive Hours, High Flow/Velocity Cannula (ICD-10-PCS; 2022-12-23)
DX: C34.91 Malignant neoplasm of unspecified part of right bronchus or lung (principal); E43 Unspecified severe protein-calorie malnutrition; J96.21 Acute and chronic respiratory failure with hypoxia; I50.43 Acute on chronic combined systolic (congestive) and diastolic (congestive) heart failure; I21.A1 Myocardial infarction type 2; N18.4 Chronic kidney disease, stage 4 (severe); I48.92 Unspecified atrial flutter; E87.20 Acidosis, unspecified; N17.9 Acute kidney failure, unspecified; I13.0 Hypertensive heart and chronic kidney disease with heart failure and stage 1 through stage 4 chronic kidney disease, or unspecified chronic kidney disease; J91.8 Pleural effusion in other conditions classified elsewhere; J44.1 Chronic obstructive pulmonary disease with (acute) exacerbation; Z68.1 Body mass index [BMI] 19.9 or less, adult; E22.2 Syndrome of inappropriate secretion of antidiuretic hormone; Z66 Do not resuscitate; Z51.5 Encounter for palliative care; I25.10 Atherosclerotic heart disease of native coronary artery without angina pectoris; F14.10 Cocaine abuse, uncomplicated; I48.0 Paroxysmal atrial fibrillation; R53.81 Other malaise; I95.9 Hypotension, unspecified; F41.9 Anxiety disorder, unspecified; Z20.822 Contact with and (suspected) exposure to COVID-19; Z59.00 Homelessness unspecified; Z98.890 Other specified postprocedural states; Z79.899 Other long term (current) drug therapy
CPT/HCPCS: 36415; 71045; 71250; 80048; 80053; 80162; 80306; 81001; 82150; 82805; 82945; 83605; 83615; 83690; 83880; 83986; 84157; 84478; 84484; 85025; 85060; 87040; 87086; 87116; 87206; 88112; 88305; 89051; 93005; 93010; 93306; 94640; 94660; 96365; 96367; 96375; J0282; J0360; J0456; J0692; J1160; J1642; J1650; J1815; J1940; J2001; J2060; J2272; J2920; J2930; J3490; J7050; J7070; J7611; J7620; J7626; J7999; S0028

== ENCOUNTER 2022-12-26 10:37 | Inpatient (IN) | payer OTHER ==
[2022-12-26] MEDS ORDERED: diphenhydrAMINE 50 MG/ML VIAL IVP PRN (11:00)
[2022-12-26] MEDS ORDERED: Scopolamine 1.5 mg/72 hour Patch TOP SCH (11:00)
[2022-12-26] MEDS ORDERED: Bisacodyl 10 MG SUPP PR SCH (11:00)
[2022-12-26] MEDS ORDERED: Acetaminophen 325 MG TAB PO PRN (11:00)
[2022-12-26] MEDS ORDERED: Ondansetron PF 4 MG/2 ML Vial IVP PRN (11:00)
[2022-12-26] MEDS: Lorazepam 2 MG/ML VIAL SLOW IVP SCH ×3 (11:47→23:15)
[2022-12-26] MEDS: Morphine 4 MG/ML VIAL SLOW IVP SCH ×2 (11:47→20:29)
[2022-12-27] MEDS: Morphine 4 MG/ML VIAL SLOW IVP SCH (02:26)
[2022-12-27 03:44] VITALS: TEMP 98.9
[2022-12-27] MEDS: Lorazepam 2 MG/ML VIAL SLOW IVP SCH (04:08)
[2022-12-27] MEDS: Morphine 4 MG/ML VIAL SLOW IVP PRN ×4 (04:54→06:20)
[2022-12-27] MEDS: Lorazepam 2 MG/ML VIAL SLOW IVP PRN ×3 (05:05→05:59)
[2022-12-27 05:54] VITALS: BP 127/77
== END 2022-12-27 06:43 | disposition expired | DRG 951 ==
LOC: IMCU/EMU 10:37
PROVIDERS: ADMIT Family Medicine; ATTEND Family Medicine
DX: Z51.5 Encounter for palliative care (principal); J96.01 Acute respiratory failure with hypoxia; I50.43 Acute on chronic combined systolic (congestive) and diastolic (congestive) heart failure; E43 Unspecified severe protein-calorie malnutrition; C34.91 Malignant neoplasm of unspecified part of right bronchus or lung; J44.1 Chronic obstructive pulmonary disease with (acute) exacerbation; E87.1 Hypo-osmolality and hyponatremia; E87.20 Acidosis, unspecified; Z68.1 Body mass index [BMI] 19.9 or less, adult; I48.91 Unspecified atrial fibrillation; N18.30 Chronic kidney disease, stage 3 unspecified; F41.9 Anxiety disorder, unspecified
CPT/HCPCS: J2060; J2270